=== PATIENT | female | born 1970 | race Caucasian/White ===

== ENCOUNTER 2016-12-10 12:50 | Inpatient (IN) ==
--- NOTE | 2016-12-10 15:18 | Urology - Consult Note ---
Date of Encounter: 12/10/16 Time of Encounter: 15:16 - Assessment and Plan (1) Ureteral stone Current Visit: Yes Status: Acute Assessment and plan: 46-year-old woman with a history of a right distal ureteral stone. She had an elevated white count at the outside hospital to 18.5. Her creatinine was stable at 1.07. Lactic acid was 2. We will start her on IV antibiotic and manage her pain overnight. I will plan on proceeding with a right ureteroscopy, laser lithotripsy, and stent placement tomorrow. She was informed of the risks of the procedure including but not limited to bleeding, infection, injury to other structures, need for further procedures, stent irritation, incomplete fragmentation, ureteral perforation, need for nephrostomy tube, need for open repair, risks unforeseen, and the risk of anesthesia. She is willing to proceed. We will carefully monitor her temperature. She does spike a temperature, we will need to place a stent. Urology CN:HPI Consult date: 12/10/16 Reason for consult Urology: Other (Right ureteral stone) Requesting physician: Gerardo Barbosa History of present illness: 46-year-old woman presents with a history of right flank pain. The pain was sharp and started today at 2am. She went to an outside hospital. A CT scan showed evidence of a 5 mm right distal ureteral stone. She was then transferred to [facility] for further care. The pain can be severe at times. She denies any previous stone procedures. She thinks she may have passed a stone in the past but never collected any. She denies any history of diabetes. Past Med Surg Social Fam HX - Family History Brother Hx Family Genitourinary Disorders: Yes (Stones) Review of Systems - Constitutional chills, no fever(s) - EENT Nose, mouth and throat: no dizziness - Cardiovascular no chest pain - Respiratory no dyspnea - Gastrointestinal nausea, no vomiting - Genitourinary Genitourinary: flank pain, no hematuria - Musculoskeletal no back pain - Integumentary no erythema, no rash - Neurological no weakness - Psychiatric no suicidal ideation - Hematologic/Lymphatic no easy bleeding - Allergic/Immunologic no wheezing Exam - General physical appearance Present: well developed, well nourished, no distress - Eyes Absent: icteric - ENT Present: normal nares - Neck Present: trachea midline - Respiratory Present: normal respiratory effort - Cardiovascular Cardiovascular exam IM: RRR - Abdomen Abdomen: Present: soft Urology Results - Labs All other labs normal. - Imaging CT scan - abdomen: report reviewed, image reviewed CT scan - pelvis: report reviewed, image reviewed Consult Discharge Plan - Plan Referrals: Angelica Kay [Primary Care Provider] -
[2016-12-10] MEDS ORDERED: *HR* HYDROmorphone (PF) 1 MG/ML SYRINGE ONE (17:48)
[2016-12-10] MEDS ORDERED: Ondansetron 4 MG/2 ML VIAL IVP PRN (17:57)
[2016-12-10] MEDS ORDERED: Naloxone 0.4 MG/ML INJ IVP PRN (17:57)
[2016-12-10] MEDS ORDERED: Acetaminophen 325 MG TABLET PO PRN (17:57)
--- NOTE | 2016-12-10 18:18 | Internal Med History&Physical ---
<Deepak Allan J - Last Filed: 12/10/16 19:01> Date of Encounter: 12/10/16 Time of Encounter: 18:06 Assessment and Plan (1) Ureteral stone Current visit: Yes Status: Acute Presents with fevers, chills, N/V and right flank pain with radiation to the RLQ, CT from [facility] showed evidence of a 5 mm right distal ureteral stone requiring surgical intervention. Urology has been consulted and plans for surgical intervention in the morning. Plan is to start antibiotic coverage and for pain management. Rocephin 1gm daily CBC in am (2) Pain Current visit: Yes Status: Acute Diagnosed with right distal ureteral stone, reports pain 8/10, allergic to morphine, Dilaudid given in [facility] and pain decreased 4/10. Continue with Dilaudid IVP 1mg Q4hr for pain. Internal Medicine - H&P: HPI Chief complaint: ureteral calculi Admitted From: Home Plans for Post Hospital Care: Home History of present illness: Ms. Bravo is a 46 year old female no prior past medical history presenting today From [facility] with a 1 day h/o chills, fevers, sweats, N/v AND right flank pain with radiation to RLQ. She does continue to make urine. Workup from [facility] CT reveals right distal urteral stone CR stable at 1.07, and lactic acid of 2. Nephrology has been Consulted and she is having a right ureteroscopy, laser lithotripsy, and stent placement tomorrow. She is being admitted to start her on IV antibiotic and manage her pain overnight. Past Med Surg Social Fam HX - Past Surgical History Surgical History: cholecystectomy, JONATHON/BSO - Social History Smoking Status: Current every day smoker Smokeless Tobacco Status: No - Family History Brother Hx Family Genitourinary Disorders: Yes (Stones) Father Hx Family Cardiac Disorders: Yes Hx Family Respiratory Disorders: Yes (mother-copd,) Hx Family Cancer: Yes (colon -grandfather) Hx Family GI Disorders: No Hx Family Genitourinary Disorders: Yes Hx Family Endocrine Disorder: Yes Hx Family Musculoskeletal Disorders: Yes Internal Medicine - H&P: Meds No Known Home Drugs 12/10/16 [History] 3 Allergy/AdvReac Type Severity Reaction Status Date / Time morphine Allergy Anaphylaxis Verified 12/10/16 17:55 All Systems PM: A 10-system review of systems was performed and is negative for pertinent findings except as documented above in the HPI. - Constitutional Constitutional: chills, excessive sweating, fever(s), malaise, no night sweats - EENT Eyes: no change in vision, no discharge, no pain, no photophobia Ears: no ear discharge, no ear pain, no tinnitus Nose, mouth and throat: no dysphagia, no nasal discharge, no neck pain, no sore throat - Cardiovascular Cardiovascular ROS IM: no chest pain, no diaphoresis, no dyspnea, no lightheadedness, no palpitations, no syncope - Respiratory Respiratory: no cough, no dyspnea, no wheezing, no excessive phlegm production - Gastrointestinal Gastrointestinal: no abdominal pain, no diarrhea, no hematemesis, no hematochezia, no melena, no nausea, no vomiting - Genitourinary Genitourinary: flank pain, no change in urinary stream, no difficulty urinating , no difficulty voiding, no dysuria, no hematuria - Musculoskeletal Musculoskeletal ROS IM: no numbness, no tingling - Integumentary Integumentary IM: no rash, no unusual bruising - Neurological Neurological ROS: no confusion, no convulsions, no focal weakness, no numbness, no tingling, no tremor(s) - Hematologic/Lymphatic Hematologic/Lymphatic: no easy bruising - Constitutional Vitals: Temp Pulse Resp BP Pulse Ox 98.1 F 50 14 146/81 99 12/10/16 16:51 12/10/16 16:51 12/10/16 16:51 12/10/16 16:51 12/10/16 16:51 General appearance: Present: cooperative, A&O X 3, no acute distress, answers questions appropriately - Head Head exam: Present: atraumatic, normocephalic - Eye Eye exam: Present: EOMI, PERRL, conjuntiva pink, sclera anicteric Pupils: Present: PERRL - Neck Neck exam general surgery: Present: supple, trachea midline. Absent: lymphadenopathy - Respiratory Respiratory exam: Present: CTAB. Absent: accessory muscle use, rales, rhonchi, wheezes - Cardiovascular Cardiovascular exam: Present: RRR, +S1, +S2. Absent: diastolic murmur, gallop, rubs, systolic murmur - GI/Abdominal GI/Abdominal exam: Present: normal bowel sounds, soft, tenderness (RLQ), no peritoneal signs. Absent: distended, rebound - Extremities Exam Extremities exam: Present: warm, radial pulses palpable and symmetrical. Absent : calf tenderness, cyanotic, pedal edema - Back Exam Back exam: Present: CVA tenderness (R) - Neurological Exam Neurological exam: Present: CN II-XII intact, oriented X3, no focal deficits. Absent: pronater drift, facial droop, speech deficit - Skin Skin exam: Present: dry, intact Internal Med - H&P Results - Diagnostic Studies CT scan - abdomen Status: image reviewed by me Additional comments: CT [facility] showed evidence of a 5 mm right distal ureteral stone <Mauro Braga - Last Filed: 12/10/16 19:07> Date of Encounter: 12/10/16 Internal Medicine - H&P: HPI History of present illness: Ms. Bravo is a 46 year old female All Systems PM: A 10-system review of systems was performed and is negative for pertinent findings except as documented above in the HPI. - Constitutional Vitals: Temp Pulse Resp BP Pulse Ox 98.1 F 50 14 146/81 99 12/10/16 16:51 12/10/16 16:51 12/10/16 16:51 12/10/16 16:51 12/10/16 16:51 - Attending Attestation I have personally performed a face to face evaluation on this patient and I discussed the assessment and plan with the nurse practitioner. I have reviewed and agree with the documented care plan. History and Exam by me shows: Ms. Bravo is a 46 year old female no prior past medical history presenting today From [facility] with a 1 day h/o chills, fevers, sweats, N/v AND right flank pain with radiation to RLQ. She does continue to make urine. Workup from [facility] reveals right distal urteral stone CR stable at 1.07, and lactic acid of 2. Nephrology has been Consulted and she is having a right ureteroscopy, laser lithotripsy, and stent placement tomorrow. She is being admitted to start her on IV antibiotic and manage her pain overnight. Gen: A,A, O x 3 Chest : CTA no wheezing, No rales Abd: Sift, NT Back: No CVA tenderness a/p 1. Acute Rt ureter calculi prophylactic abx, IV fluids Urology on board scheduled for scope and lithotripsy in AM
[2016-12-10] MEDS: 0.9 % Sodium Chloride 1,000 ML IVC SCH (20:45)
[2016-12-10] MEDS: *HR* HYDROmorphone (PF) 1 MG/ML SYRINGE IVP PRN (22:35)
[2016-12-11] MEDS: 0.9 % Sodium Chloride 1,000 ML IVC SCH (05:16)
[2016-12-11] MEDS: *HR* HYDROmorphone (PF) 1 MG/ML SYRINGE IVP PRN ×2 (05:19→09:27)
[2016-12-11 06:49] LABS: Basophils # 0.1 K/mcL (0.0-0.2); Basophils % 0.4 %; Eosinophils # 0.1 K/mcL (0.0-0.6); Hematocrit 38.6 % (35.3-44.9); Hemoglobin 11.9 g/dL (11.5-15.4); Immature Granulocytes % 0.4 % (0-4); Lymphocytes # 1.9 K/mcL (0.6-4.6); Mean Corpuscular HGB Conc 30.8 g/dL (31.6-35.5); Mean Corpuscular Hemoglobin 28.3 pg (28.0-33.3); Mean Corpuscular Volume 91.7 fL (83.0-100.0); Mean Platelet Volume 11.4 fL (9.4-12.4); Monocytes # 0.9 K/mcL (0.0-1.3); Monocytes % 8.3 %; Neutrophils # 8.3 K/mcL (1.6-8.9); Platelet Count 227 K/mcL (140-400); Red Blood Count 4.21 M/mcL (3.82-4.97); Segmented Neutrophils % 72.9 %
[2016-12-11 07:02] LABS: BUN/Creatinine Ratio 18 (6-26); Blood Urea Nitrogen 16 mg/dL (7-20); Calcium 8.7 mg/dL (8.6-10.8); Carbon Dioxide 27 mEq/L (19-29); Chloride 107 mEq/L (98-109); Glucose 96 mg/dL (70-99); Osmolality,Calculated 293 (280-300); Potassium 3.9 mEq/L (3.5-4.5); Sodium 141 mEq/L (136-145); eGFR For African Americans > 60 (> 60); eGFR For Non-African Americans > 60 (> 60)
[2016-12-11] MEDS ORDERED: Nicotine 21 MG PATCH.TD24 TD SCH (09:00)
--- NOTE | 2016-12-11 10:39 | Urology Progress Note ---
Date of Encounter: 12/11/16 Time of Encounter: 10:37 - Assessment and Plan (1) Ureteral stone Current Visit: Yes Status: Acute Assessment and plan: 46-year-old woman with a history of a distal right ureteral stone. She has been admitted for pain control. She has been on ceftriaxone. She has been afebrile. 1. Plan for right ureteroscopic stone extraction with laser lithotripsy today. All risks were informed. She is willing to proceed. She is nothing by mouth at this point. Progress Note Narrative: 46 year old woman with a history of a right ureteral stone. She was admitted overnight. She has been afebrile. We plan on removing her stone today. Objective Initial Vital Signs Temp Pulse Resp BP Pulse Ox 98.1 F 50 14 146/81 99 12/10/16 16:51 12/10/16 16:51 12/10/16 16:51 12/10/16 16:51 12/10/16 16:51 - General physical appearance Present: well developed, well nourished, no distress - Respiratory Present: normal respiratory effort - Abdomen Present: soft - Labs 12/11/16 05:05 12/11/16 05:05 Diabetes panel 12/11/16 Range/Units 05:05 Sodium 141 (136-145) mEq/L Potassium 3.9 (3.5-4.5) mEq/L Chloride 107 (98-109) mEq/L Carbon Dioxide 27 (19-29) mEq/L BUN 16 (7-20) mg/dL Creatinine 0.87 (0.57-1.11) mg/dL Glucose 96 (70-99) mg/dL Calcium 8.7 (8.6-10.8) mg/dL Calcium panel 12/11/16 Range/Units 05:05 Calcium 8.7 (8.6-10.8) mg/dL Pituitary panel 12/11/16 Range/Units 05:05 Sodium 141 (136-145) mEq/L Potassium 3.9 (3.5-4.5) mEq/L Chloride 107 (98-109) mEq/L Carbon Dioxide 27 (19-29) mEq/L BUN 16 (7-20) mg/dL Creatinine 0.87 (0.57-1.11) mg/dL Glucose 96 (70-99) mg/dL Calcium 8.7 (8.6-10.8) mg/dL Adrenal panel 12/11/16 Range/Units 05:05 Sodium 141 (136-145) mEq/L Potassium 3.9 (3.5-4.5) mEq/L Chloride 107 (98-109) mEq/L Carbon Dioxide 27 (19-29) mEq/L BUN 16 (7-20) mg/dL Creatinine 0.87 (0.57-1.11) mg/dL Glucose 96 (70-99) mg/dL Calcium 8.7 (8.6-10.8) mg/dL Consult Discharge Plan - Plan Referrals: Angelica Kay [Primary Care Provider] -
[2016-12-11] MEDS ORDERED: *HR* FentaNYL (PF) 100 MCG/2 ML VIAL ONE (14:02)
[2016-12-11] MEDS ORDERED: *HR* Midazolam HCl 2 MG/2 ML VIAL ONE (14:02)
[2016-12-11] MEDS ORDERED: *HR* Propofol 200 MG/20 ML VIAL IVP ONE (14:03)
[2016-12-11] MEDS ORDERED: Ondansetron 4 MG/2 ML VIAL ONE (14:04)
[2016-12-11] MEDS ORDERED: *HR* Succinylcholine 200 MG/10 ML VIAL IVP ONE (14:04)
[2016-12-11] MEDS ORDERED: Lidocaine -MPF 2% 2 ML VIAL ONE (14:04)
[2016-12-11] MEDS ORDERED: Dexamethasone 4 MG/ML VIAL ONE (14:04)
[2016-12-11] MEDS ORDERED: Albuterol 2.5 MG/3 ML NEBULIZER IH ONE ×2 (14:18→15:20)
[2016-12-11] MEDS ORDERED: Albuterol 2.5 MG/3 ML NEBULIZER ONE (14:19)
[2016-12-11] MEDS ORDERED: Ringers Solution, Lactated 1,000 ML IVC SCH (14:30)
--- NOTE | 2016-12-11 15:06 | Anesthesia Evaluation PreOp ---
Date of Encounter: 12/11/16 Time of Encounter: 15:04 - Past History Planned Operation: Right Ureteral Stone Cardiac History: Denies any Significant Hx Pulmonary History: Smoker, Pack/yr (1 ppd x 34 years) TOOLS ADMINISTRATOR History: Denies Any Significant HX Other Medical History: Denies Any Significant HX Anesthesia History: No Prior Anesthetic Complications, Past Anesthesia (GB, JONATHON- BSO) : No (JONATHON) Medications and Allergies No Known Home Drugs 12/10/16 [History] 3 Allergy/AdvReac Type Severity Reaction Status Date / Time morphine Allergy Anaphylaxis Verified 12/10/16 17:55 - Meds/Allergy Pre-op Review Medications Reviewed: Yes Allergies Reviewed: Yes Beta Blockers on Current Med List: No Anesthesia Results - Labs 12/11/16 05:05 12/11/16 05:05 Anesthesia Exam O2 Sat Height 1.78 m Weight 121.619 kg O2 Sat by Pulse Oximetry 95 O2 Sat by Pulse Oximetry 95 O2 Sat by Pulse Oximetry 97 O2 Sat by Pulse Oximetry 96 O2 Sat by Pulse Oximetry 99 Vital Signs Temp Pulse Resp BP Pulse Ox 98.1 F 50 14 146/81 99 12/10/16 16:51 12/10/16 16:51 12/10/16 16:51 12/10/16 16:51 12/10/16 16:51 Vital Signs/O2 Sat, Most Current Temp Pulse Resp BP Pulse Ox 98.2 F 56 15 118/76 95 12/11/16 10:04 12/11/16 10:04 12/11/16 10:04 12/11/16 10:04 12/11/16 10:04 Height: 5'10'' Weight: 268# NPO (# of Hours): > 8 hrs Pain Scale: 0 Pain Scale Used: Numeric (1 - 10) - HEENT Pupil (Motor): Pupils equal, EOMI Mallampati: II Teeth: Normal, Poor dentition Oral Opening: Greater than 3 - TOOLS ADMINISTRATOR LOC: Oriented TOOLS ADMINISTRATOR Motor: Normal RUE, Normal LUE, Normal RLE, Normal LLE, Normal Face TOOLS ADMINISTRATOR Sensory: Normal: RUE, LUE, RLE, LLE, Face - Cardiac Rhythm: Regular Murmur: None JVD: No Carotid Bruit: No - Pulmonary Breath Sounds: bilateral Clear Respiratory Effort: Symmetrical Anesthesia Assess/Plan ASA Score: 3 Anesthetic Plan: General Autologous Blood: Yes Monitoring Plan: Standard Monitors Recovery Plan: PACU
--- NOTE | 2016-12-11 15:19 | Operative Note ---
Date of procedure: 12/11/16 Pre-op diagnosis: Right ureteral stone Post-op diagnosis: same Procedure: Right ureteroscopy, laser lithotripsy, and right ureteral stent placement. Implants: 6 Sami by 24 cm double-J stent. Complications: none Anesthesia: PURA Surgeon: Gerardo Barbosa Estimated blood loss (cc): 1 Specimen: none Condition: stable Disposition: PACU Procedure in Detail: Indications: Kaycee is a 46-year-old woman who has a history of right flank pain. A CT scan showed a distal right ureteral stone. She has tried to pass the stone on her own but has not been able to do so. She is still having flank pain. She wishes to have the stone removed. Therefore, she elected undergo a right ureteroscopy, laser lithotripsy, basket stone extraction, and right ureteral stent placement. She is aware of the risks of the procedure including but not limited to bleeding , infection, injury to other structures, need for further procedures, need for stent, stent irritation, need for nephrostomy tube, incomplete treatment, need for open repair, risks unforeseen, and the risk of anesthesia. She is on proceed. Procedure: After informed consent was obtained the patient was brought back to the operating room and placed in supine position. A time out was performed. General anesthesia was administered and an LMA was placed. She was then placed in the lithotomy position. She was prepped and draped in the usual sterile fashion. Cystoscopy was performed. The anterior urethra was normal. There was no evidence of bladder tumors. The ureteral orifices were in the normal orthotopic position. The zip wire was placed up the right ureteral orifice and brought to the kidney under fluoroscopic guidance. The ureter was dilated with the 8/10 Sami ureteral dilator. I then advanced the semirigid ureteroscope into the ureter. The stone was fragmented using the 200 micron laser fiber. The stone fragments were irrigated out. A 6 Sami by 24cm JJ stent was then placed with good curl seen in the kidney and the bladder. The dangle string was left intact. The string was tucked into the vagina and will be used to remove the stent at a later date. The patient was then awakened from general anesthesia and brought to recovery room in good condition. All sponge, needle, and instrument counts were correct.
[2016-12-11] MEDS ORDERED: *HR* HYDROmorphone (PF) 1 MG/ML SYRINGE IVP PRN (15:20)
[2016-12-11] MEDS ORDERED: *HR* Promethazine 25 MG/ML VIAL IVP PRN (15:20)
[2016-12-11] MEDS ORDERED: Ondansetron 4 MG/2 ML VIAL IVP ONE (15:20)
[2016-12-11] MEDS ORDERED: *HR* Labetalol 20 MG/4 ML SYRINGE IVP PRN (15:20)
--- NOTE | 2016-12-11 16:19 | Discharge Summary ---
<Mono Padilla - Last Filed: 12/11/16 17:29> Date of Encounter: 12/11/16 - Discharge Medications Prescriptions: Ciprofloxacin [Cipro] 500 mg PO Q12H 7 Days #14 tablet Home Medications: Ciprofloxacin [Cipro] 500 mg PO Q12H 7 Days #14 tablet 12/11/16 [Rx] Allergies/Adverse Reactions: 3 Allergy/AdvReac Type Severity Reaction Status Date / Time morphine Allergy Anaphylaxis Verified 12/10/16 17:55 Date of admission: 12/10/16 17:57 Primary care physician: Quynh Provider - Patient Status Disposition: Home, Self-Care Condition: Good - Discharge Instructions Follow Up With: Angelica Kay [Primary Care Provider] - Additional Instructions: Please follow up with the [facility] department within 4-5 days. Please have your CBC and Basic metabolic panel (BMP) drawn in 3 days, prior to your visit. Please take ciprofloxacin 500 mg every 12 hours for 7 days. We discussed the importance of adequate hydration. Please proceed to the emergency department in event of fever, new symptoms, hematuria (blood in the urine), passing gravel, nausea, vomiting, pain with urination, or an urgent need to urinate. Hospital course: Ms. Bravo is a 46 year old female - Time Spent with Patient Total time spent providing and/or coordinating discharge services: - Constitutional Vitals: Temp Pulse Resp BP Pulse Ox 98.4 F 63 12 137/83 94 12/11/16 17:23 12/11/16 17:23 12/11/16 17:23 12/11/16 17:23 12/11/16 17:23 - Attending Attestation I examined this patient and my medical decision-making was reviewed with the Resident Physician. I agree with the documented findings, disposition and treatment plan as described except to the extent set forth below. <Swathi Ludwig - Last Filed: 12/11/16 18:30> Date of Encounter: 12/11/16 Time of Encounter: 16:11 - Discharge Diagnosis (1) Ureteral stone Priority: Primary Status: Acute (2) Pain Priority: Primary Status: Resolved Procedures/tests Complete & Pending: Fluoroscopy 12/11/16 00:00 IMPRESSION: Intraprocedural fluoroscopic spot images as above. See separate procedure report for more information. D/ / 12/11/2016 16:33:10 Triston Sheikh MD / tami Interpreting Provider: Triston Sheikh MD X-Ray 12/11/16 00:00 IMPRESSION: Intraprocedural fluoroscopic spot images as above. See separate procedure report for more information. D/ / 12/11/2016 16:33:10 Triston Sheikh MD / tami Interpreting Provider: Triston Sheikh MD Date of admission: 12/10/16 17:57 Primary care physician: Quynh Provider Consults: Urology Discharging clinician: Swathi Ludwig Anticipated date of discharge: 12/11/16 - Patient Status Functional capacity at discharge: independent ambulation Overall status at discharge: patient is progressing back to baseline - Diet and Activity Activity: increase activity as tolerated, resume usual activities as tolerated Diet: regular diet (maintain good hydration) Interval History: Pt is status post right ureteroscopy, laser lithotripsy, and right ureteral stent placement. Pain has resolved. Feels very well. Pt has urinated, reports no hematuria. Hospital course: Ms. Bravo is a 46 year old female with history of sinus arrhythmia presenting with persistent right flank pain from [facility] with a 1 day h/o chills, fevers, sweats, N/v and right flank pain with radiation to RLQ. CT scan showed a distal right ureteral stone. Nephrology and Urology was consulted. Patient attempted to pass the stone on her own but has not been able to do so. She wished to have the stone removed. Maintained adequate urine output. Therefore, she underwent a right ureteroscopy, laser lithotripsy, basket stone extraction, and right ureteral stent placement. Urology service conducted [id number] with resident MD, patient deemed safe for discharge following stable recovery. CBC and BMP, showed reactive WBC slightly elevated at 11.4, and otherwise within normal limits. Vital signs were monitored following procedure. - Time Spent with Patient Total time spent providing and/or coordinating discharge services: - Constitutional Vitals: Temp Pulse Resp BP Pulse Ox 98.2 F 56 15 118/76 95 12/11/16 10:04 12/11/16 10:04 12/11/16 10:04 12/11/16 10:04 12/11/16 10:04 Exam following Procedure General appearance: Present: cooperative, A&O X 3, no acute distress, answers questions appropriately - Head Head exam: Present: atraumatic, normocephalic - Eye Eye exam: Present: PERRL, conjuntiva pink, sclera anicteric Pupils: Present: PERRL - Respiratory Respiratory exam: Present: CTAB. Absent: accessory muscle use, rales, rhonchi, wheezes - Cardiovascular Cardiovascular exam: Present: RRR, +S1, +S2 - GI/Abdominal GI/Abdominal exam: Present: normal bowel sounds, soft, no peritoneal signs. Absent: distended, tenderness
--- NOTE | 2016-12-11 16:29 | Anesthesia Evaluation Post Op ---
Date of Encounter: 12/11/16 Time of Encounter: 16:28 - Vital Signs Vital Signs: Vital Signs/O2 Sat, Most Current Temp Pulse Resp BP Pulse Ox 99.0 F 51 14 133/81 94 12/11/16 16:01 12/11/16 16:21 12/11/16 16:21 12/11/16 16:21 12/11/16 16:21 - Lungs Lungs: Clear Ascult./Percussion - Airway Airway: Non-obstructed - Cardiovascular Regular Rate - Mental Status Mental Status: Alert & Oriented, Answers Appropriately - Pain Pain Scale: 0 Pain Scale used: Numeric (1 - 10) - Nausea Vomiting Nausea Vomiting: Not Present - Hydration Hydration: NPO, Has not voided - Discharge PostOp Status: Transfer Patient to floor
[2016-12-11 17:25] VITALS: BP 137/83
[2016-12-11] MEDS ORDERED: FLUARIX QUAD 2017-18 36MOS UP/PF 0.5 ML SYRINGE IM ONE (18:22)
== END 2016-12-11 18:50 | disposition home or self-care (01) | DRG 670 ==
LOC: 3ANU
PROVIDERS: ADMIT Family Medicine; ATTEND Internal Medicine